=== PATIENT | female | born 1980 | race African-American/Black ===

== ENCOUNTER → 2016-07-17 | Outpatient (CLI) | payer OTHER ==
[2016-03-12 10:12] VITALS: BP 153/96
[~2016-07-17] MED LIST: CHOL100013 PO; GLIP5TAB10 PO; HYDR-971 PO; METH4TAB2 PO; NAPR500T8 PO; NIFE30TA7 PO; PREN-14 PO
--- NOTE | 2016-07-17 15:13 | RAD ---
EXAM: DIGITAL DIAGNOSTIC RT, BREAST RIGHT. HISTORY: Follow-up right breast mass. COMPARISON: Bilateral mammogram 12/14/2015. Right breast ultrasound 01/12/2016. FINDINGS: Digital mammography was performed. Computer-aided detection (CAD) was utilized. Routine CC and MLO views of the right breast were obtained. A marker was placed in the medial right breast in area of recently palpable lesion. Breast parenchyma is heterogeneously dense, which could reduce sensitivity of mammography (tissue density C). Several well-circumscribed masses are seen within the right breast which do not appear appreciably changed from previous study. One of the well-circumscribed masses which appears associated with the lesion marker measures about 2 cm in maximum dimension, and is thought unchanged from previous study. Further evaluation was performed with right breast ultrasound. Ultrasound imaging was performed by veterinary technologist. Within the right breast at 7:00, 7 cm from the nipple, there is a hypoechoic mass with enhanced through transmission. This mass measures 1.1 x 0.9 x 0.4 cm (previously 1.0 x 0.9 x 0.5 cm). Within the right breast at 3:00, 11 cm from the nipple, in the area of palpable abnormality, there is an additional hypoechoic mass which measures 2.0 x 1.0 x 1.3 cm. This appears to have a internal echogenic structure, which could be a septation. IMPRESSION: 1. 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 2. Hypoechoic mass detected by ultrasound involving the right breast at 7:00, 7 cm from the nipple, is unchanged over 6 month interval. Fibroadenoma is favored. 3. Palpable lesion in the medial right breast corresponds to a hypoechoic mass measuring 2.0 cm in maximum dimension. This mass appears mammographically unchanged, and probably represents additional fibroadenoma. 4. Recommend a follow-up bilateral diagnostic mammogram and right breast ultrasound in 6 months. BI-RADS CATEGORY: 3 PROBABLY BENIGN FINDING(S)-SHORT INTERVAL FOLLOW-UP SUGGESTED RECOMMENDED FOLLOW-UP: 6M 6 MONTH FOLLOW-UP PQRS compliance statement: Patient information was entered into a reminder system with a target due date for the next mammogram. Mammography is a sensitive method for finding small breast cancers, but it does not detect them all and is not a substitute for careful clinical examination. A negative mammogram does not negate a clinically suspicious finding and should not result in delay in biopsying a clinically suspicious abnormality. "Our facility is accredited by the [employer] Mammography Program."
== END | disposition home or self-care (01) ==
LOC: KCIC MAMMO 13:39
PROVIDERS: ATTEND Family Medicine
DX: N63 Unspecified lump in breast (principal)
CPT/HCPCS: 76641; G0206; 77051; 77065

== ENCOUNTER → 2017-02-08 | Outpatient (CLI) | payer OTHER ==
[2016-03-12 10:12] VITALS: BP 153/96
--- NOTE | 2017-02-08 11:32 | RAD ---
DATE: 02/08/2017 EXAM: MAMMO GUSTAVO ALEX BILAT, BREAST RIGHT HISTORY: Follow-up breast nodules COMPARISON: 07/17/2016 The breast parenchyma is heterogeneously dense, which could reduce the sensitivity of mammography. Breast parenchyma level C. FINDINGS: 2-D and 3-D tomosynthesis imaging was performed in CC and MLO projections. There are least 5 smooth nodules in the right breast. Comparison with the previous 2-D images shows no significant change in size. There is a breast biopsy marker related to the largest nodule in the inferior aspect of the right breast. Reportedly this was found to be a benign fibroadenoma at biopsy. There is a lesser degree of nodularity in the left breast. Several small smooth nodules are noted on the tomograms. The largest of these lies medially in the left breast and is unchanged since the previous 2-D exam. No new or enlarging breast densities are seen. There are benign type calcifications in both breasts. No suspicious microcalcifications have developed. Right breast ultrasound, 02/08/2017: A targeted ultrasound exam was performed in the areas of concern described on 07/17/2016 study. At the 3:00 location approximately 11 cm from the nipple there is a persistent 18 x 9 x 11 mm hypoechoic nodule. It appears to have decreased slightly in size since previous study, although that difference may be on a technical basis. It is wider than tall. It has a solid appearance. At the 7:00 location approximately 7 cm from the nipple there is an additional persistent hypoechoic nodule. It is best seen in the antiradial plane and measures 5 x 10 mm. It appears to be unchanged in size. Its margins are smooth and it is wider than tall. This is probably a fibroadenoma. IMPRESSION: Stable bilateral breast nodules as described above, most likely fibroadenomas. Mammographic surveillance beginning with 3-D mammography in 6 months and then at yearly intervals is suggested to confirm stability. BI-RADS CATEGORY: 3 PROBABLY BENIGN FINDING(S)-SHORT INTERVAL FOLLOW-UP SUGGESTED RECOMMENDED FOLLOW-UP: 6M 6 MONTH FOLLOW-UP PQRS compliance statement: Patient information was entered into a reminder system with a target due date for the next mammogram. Mammography is a sensitive method for finding small breast cancers, but it does not detect them all and is not a substitute for careful clinical examination. A negative mammogram does not negate a clinically suspicious finding and should not result in delay in biopsying a clinically suspicious abnormality. "Our facility is accredited by the [employer] Mammography [employer]."
== END | disposition home or self-care (01) ==
LOC: KCIC MAMMO 09:41
PROVIDERS: ATTEND Family Medicine
DX: N63 Unspecified lump in breast (principal); R92.1 Mammographic calcification found on diagnostic imaging of breast
CPT/HCPCS: 76641; G0204; G0279; 77062; 77066

== ENCOUNTER → 2018-03-04 | Outpatient (CLI) | payer OTHER ==
[2016-03-12 10:12] VITALS: BP 153/96
--- NOTE | 2018-03-04 16:32 | KCIC ---
Bilateral diagnostic digital mammograms with 3-D tomosynthesis: Reason for examination: Follow-up nodules. Comparison is made to previous studies dated back to 12/14/2015. Bilateral mammograms in CC and oblique projections were obtained with 2-D imaging and 3-D tomosynthesis imaging on a Siemens Inspiration unit and reviewed on the workstation. Interpretation was made with the benefit of CAD. The skin and nipples show no abnormalities. No abnormal axillary lymph nodes are seen. The breast parenchyma is heterogeneously dense. (Breast density: Category C.) There continue to be multiple small nodules present in the breasts. There appears however to be a new small circumscribed nodule at the 6:00 B position of the right breast and a small nodule at the 12:00 B position of the left breast. Further evaluation with ultrasound will follow. Benign calcifications are present. Impression: New nodules in the 6:00 B position of the right breast and 12:00 B position of the left breast. Ultrasound to follow. Your patient's mammogram demonstrates that she has dense breast tissue (breast density category C or D), which could hide abnormalities, and if she has other risk factors for breast cancer that have been identified, she might benefit from supplemental screening tests that may be suggested by you as her ordering physician. Dense breast tissue, in and of itself, is a relatively common condition. Therefore, this information is not provided to cause undue concern, but rather to raise your awareness and to promote discussion with your patient regarding the presence of other risk factors, in addition to dense breast tissue. Your patient's mammography results will be sent to her. BI-RAD Category 0: Incomplete. Needs additional imaging evaluation. Bilateral breast ultrasound: Comparison is made to previous ultrasound examination dated 02/08/2017. Bilateral whole breast ultrasound including evaluation of all 4 quadrants and the retroareolar and axillary regions of both breasts was performed. In the left breast at the 12:00 position 6 cm from the nipple, there is a septated cystic-appearing lesion measuring 8.4 x 6.9 mm in greatest dimensions. In the 1:00 position 5 cm from the nipple, there is a 1 cm hypoechoic circumscribed lesion in parallel orientation which may represent a complicated cyst or fibroadenoma. In the 3:00 position 9 cm from the nipple, there is a hypoechoic circumscribed lesion measuring 5.8 x 5 mm in size consistent with an intramammary lymph node. In the 8:00 position 10 cm from the nipple, there is a hypoechoic circumscribed lesion measuring 7.8 mm in greatest dimension which may represent a complicated cyst or small fibroadenoma. In the 10:00 position 7 cm from the nipple, there appears to be a small 3.5 mm cyst. No suspicious appearing lymph nodes are seen in the axilla. In the right breast at the 3:00 position 11 cm from the nipple, there continues to be a hypoechoic circumscribed lesion measuring 1.9 cm in greatest dimension which corresponds to a biopsy-proven fibroadenoma. In the 4:00 position 3.5 cm from the nipple, there is a 3.6 mm fibrocystic type lesion. In the 5:00 position 10 cm from the nipple, there is a 9.2 mm hypoechoic circumscribed lesion consistent with a complicated cyst. In the 7:00 position 7 cm from the nipple, there continues to be a small hypoechoic lesion measuring 1.1 cm in greatest dimension consistent with a probable fibroadenoma which is unchanged. In the 6:00 position 5 cm from the nipple, there is a small 5.2 mm fibrocystic lesion. In the 9:00 position 9 cm from the nipple, there is a 6.5 mm hypoechoic circumscribed lesion which may represent a small fibroadenoma. In the 10:00 position 8 cm from the nipple, there is a 3.5 cm hypoechoic fibrocystic type lesion. No suspicious nodules are seen. No abnormal appearing lymph nodes are seen in the axilla. IMPRESSION: Multiple small anechoic and hypoechoic lesions consistent with simple and complicated cysts, fibrocystic changes and fibroadenoma. No suspicious-appearing lesions are seen. Recommend 6 month sonographic follow-up. BI-RADS Category 3: Probably Benign. "Our facility is accredited by the [employer] Mammography Program." This patient's information has been entered into a reminder system for the patient to be notified with the results of her examination and a target date for the next mammogram. Electronically signed by: Leidy Bahena MD (03/04/2018 4:29 PM) [id number]
== END | disposition home or self-care (01) ==
LOC: KCIC MAMMO 09:29
PROVIDERS: ATTEND Family Medicine
DX: R92.8 Other abnormal and inconclusive findings on diagnostic imaging of breast (principal); I10 Essential (primary) hypertension; Z90.49 Acquired absence of other specified parts of digestive tract; Z88.0 Allergy status to penicillin; Z88.5 Allergy status to narcotic agent
CPT/HCPCS: 76641; 77066; G0279; 77062

== ENCOUNTER → 2018-04-03 | Outpatient (CLI) | payer OTHER ==
[2016-03-12 10:12] VITALS: BP 153/96
--- NOTE | 2018-04-03 11:59 | KCIC ---
Limited abdominal ultrasound History: Epigastric pain. Abdomen pain. Epigastric pain for 3 months. Cholecystectomy 2016. Findings: Aorta: No evidence of aneurysm. Inferior vena cava: Patent Pancreas: Not all segments are adequately visualized, particularly the pancreatic tail. Visualized aspects appear grossly unremarkable. Liver: Unremarkable and not enlarged Gallbladder: Surgically absent Bile ducts: No evidence of dilatation Right kidney: 11.5 cm length. No evidence of hydronephrosis. Impression: 1. No acute findings post cholecystectomy. 2. Limited visualization of the pancreas. Electronically signed by: Enzo Brown MD (04/03/2018 11:55 AM) [id number]
== END | disposition home or self-care (01) ==
LOC: KCIC US 09:10
PROVIDERS: ATTEND Internal Medicine Gastroenterology
DX: R10.13 Epigastric pain (principal); I10 Essential (primary) hypertension; Z90.49 Acquired absence of other specified parts of digestive tract; Z88.0 Allergy status to penicillin; Z88.5 Allergy status to narcotic agent
CPT/HCPCS: 76705

== ENCOUNTER → 2018-04-15 | Day surgery (SDC) | payer OTHER ==
[~2018-04-15] MED LIST changes: +IV RINGERS,LACTATED 1000ML 1,000 ML IV SCH; +LIDOCAINE 2% PF 2ML VIAL. ONE; +OMEP40CA5 PO; +PROPOFOL 0 ML IV ONE; +PROPOFOL 20 ML IV ONE
[2018-04-15 15:48] LABS: U PREG PATIENT NEGATIVE (NEG)
[2018-04-15 16:46] VITALS: BP 129/90
--- NOTE | 2018-04-15 22:29 | CONS ---
DATE OF CONSULTATION: 04/15/2018 REFERRING PROVIDER: Koffi Maria. HISTORY OF PRESENT ILLNESS: A 37-year-old female with past medical history significant for diabetes, anemia, status post cholecystectomy, hypertension, was seen with persistent nausea, epigastric pain, with nausea and vomiting on a daily basis, but no melena, hematochezia or hematemesis. She has had recurrent symptoms, which have been unrelieved with Prilosec, prior cholecystectomy. Interval ultrasounds were unrevealing for additional pathology. Continued issues, she requests additional evaluation. PAST MEDICAL HISTORY: Status post cholecystectomy, anemia, diabetes, hypertension. ALLERGIES: PENICILLIN AND CODEINE. MEDICATIONS: Include vitamin D, Nifedical, omeprazole 40 mg daily. FAMILY HISTORY: Significant for diabetes, hypertension, and pancreatic cancer. REVIEW OF SYSTEMS: Per records. PAST SURGICAL HISTORY: Breast surgery, , cholecystectomy and tubal ligation. PHYSICAL EXAMINATION: GENERAL: Reveals a well-nourished, well-developed female. VITAL SIGNS: Temperature 98.2, pulse 67, respirations 20. HEENT: Normocephalic and atraumatic head. Pupils and extraocular movements are not tested. Sclerae anicteric. NECK: Supple. LUNGS: Clear. CARDIOVASCULAR: Reveals an S1, S2 without S3, S4 or appreciable murmur. ABDOMEN: Soft abdomen, normal bowel sounds without appreciable hepatosplenomegaly with epigastric tenderness to deep palpation. EXTREMITIES: Reveals no cyanosis, clubbing or edema. IMPRESSION: Abdominal pain, status post cholecystectomy, etiology is to be determined. Differential includes peptic ulcer disease, gastroparesis, malignancy, celiac disease. I therefore recommend upper endoscopy. If this is unrevealing, a gastric emptying study would be pursued. ASA ERNST MD DR: ESA/charlette JOB#: [id number] / [id number]
== END | disposition home or self-care (01) ==
LOC: SURG 15:18
PROVIDERS: ATTEND Internal Medicine Gastroenterology
DX: K29.50 Unspecified chronic gastritis without bleeding (principal); I10 Essential (primary) hypertension; K21.9 Gastro-esophageal reflux disease without esophagitis; D64.9 Anemia, unspecified; Z88.0 Allergy status to penicillin; Z79.899 Other long term (current) drug therapy; Z90.49 Acquired absence of other specified parts of digestive tract; Z98.51 Tubal ligation status; Z98.890 Other specified postprocedural states
CPT/HCPCS: 43235; 81025; J2001; J2704

== ENCOUNTER → 2018-05-08 | Outpatient (CLI) | payer OTHER ==
[2018-04-15 16:46] VITALS: BP 129/90
[~2018-05-08] MED LIST changes: -IV RINGERS,LACTATED 1000ML 1,000 ML IV SCH; -LIDOCAINE 2% PF 2ML VIAL. ONE; -PROPOFOL 0 ML IV ONE; -PROPOFOL 20 ML IV ONE
--- NOTE | 2018-05-08 14:38 | RAD ---
Gastric Emptying Study 05/08/2018 Indication: nausea, vomiting since December 2017. Procedure: Anterior and posterior projection static images are obtained over the stomach following oral administration of 1.7 mCi of 99 M technetium sulfur colloid in a solid meal (egg and toast). Time points include an immediate baseline, and 1, 2, 3, and 4 hours post ingestion. Findings: There is progressive emptying of the stomach on sequential images. Percentage retention at... One hour is 54% (normal 34.8-91%). Two hours 24% (normal 2.7-60%). Three hours 8% (normal 0.5-28%). Four hours 0% (normal 0-10%). Impression: Normal 4 hour protocol gastric emptying study. Consensus Recommendations for Gastric Emptying Scintigraphy: A Joint Report of the [place] [employer] and the Society of Nuclear Medicine: J. Nucl. Med. Technol. September 2007 vol. 36 no. 1 44-54 Grading for severity of delayed GE based on the 4-h value: grade 1 (mild): 11?20% retention at 4 h grade 2 (moderate): 21?35% retention at 4 h grade 3 (severe): 36?50% retention at 4 h grade 4 (very severe): >50% retention at 4 h. Electronically signed by: Theodore Biswas MD (05/08/2018 2:34 PM) [id number]
== END | disposition home or self-care (01) ==
LOC: NM 10:22
PROVIDERS: ATTEND Internal Medicine Gastroenterology
DX: K30 Functional dyspepsia (principal)
CPT/HCPCS: 78264; A9541

== ENCOUNTER → 2018-06-10 | Outpatient (CLI) | payer OTHER ==
[2018-04-15 16:46] VITALS: BP 129/90
[~2018-06-10] MED LIST changes: +HYDR-3164 PO; -HYDR-971 PO
--- NOTE | 2018-06-10 16:03 | RAD ---
CT head without contrast 06/10/2018 Clinical indications: Persistent nausea. COMPARISON: None. TECHNIQUE: Multiple CT images of the head were obtained without contrast. *One or more of the following individualized dose reduction techniques were utilized for this examination: 1. Automated exposure control. 2. Adjustment of the mA and/or kV according to patient size. 3. Use of iterative reconstruction technique. FINDINGS: There are scattered nonspecific dural calcifications. No acute intracranial hemorrhage or extra-axial fluid collection. Note is made of hyperostosis frontalis internus. Small right sphenoid sinus mucosal retention cyst. No midline shift. Ventricles are normal in size and configuration for age. Stephens-white matter interfaces are maintained. The basal cisterns are patent. IMPRESSION: No acute intracranial hemorrhage. Electronically signed by: Vasquez Ritchie MD (06/10/2018 3:59 PM) [id number]
== END | disposition home or self-care (01) ==
LOC: CT 10:49
PROVIDERS: ATTEND Internal Medicine Gastroenterology
DX: J34.1 Cyst and mucocele of nose and nasal sinus (principal)
CPT/HCPCS: 70450

== ENCOUNTER → 2018-08-25 | Outpatient (CLI) | payer OTHER ==
[2018-04-15 16:46] VITALS: BP 129/90
--- NOTE | 2018-08-25 12:02 | KCIC ---
Bilateral breast ultrasound: Reason for examination: Follow-up nodules. Comparison is made to previous studies dated 03/04/2018 and 02/08/2017. Bilateral whole breast ultrasound including evaluation of all 4 quadrants and the retroareolar and axillary regions of both breasts was performed. There continue to be multiple hypoechoic septated circumscribed lesions measuring up to 1.7 cm in the right breast at 8.4 mm in the left breast consistent with fibroadenoma. There does appear to be new small hypoechoic fibrocystic type lesion in the 9:00 position 9 cm from the nipple measuring 3.3 mm in size. There are no cyst solid suspicious-appearing nodules seen. No abnormal appearing lymph nodes are seen in either breast. IMPRESSION: Multiple nodules present bilaterally consistent with fibroadenoma without significant change. No suspicious-appearing lesions are seen. Recommend routine mammographic follow-up. BI-RADS Category 2: Benign. "Our facility is accredited by the [employer] Mammography Program." This patient's information has been entered into a reminder system for the patient to be notified with the results of her examination and a target date for the next mammogram. Electronically signed by: Leidy Bahena MD (08/25/2018 11:59 AM) [id number]
== END | disposition home or self-care (01) ==
LOC: KCIC US 09:15
PROVIDERS: ATTEND Family Medicine
DX: N63.20 Unspecified lump in the left breast, unspecified quadrant (principal); N63.10 Unspecified lump in the right breast, unspecified quadrant
CPT/HCPCS: 76641

== ENCOUNTER → 2019-03-19 | Outpatient (CLI) | payer MEDICAID ==
[2018-04-15 16:46] VITALS: BP 129/90
--- NOTE | 2019-03-19 16:50 | KCIC ---
BILATERAL SCREENING MAMMOGRAM History: Routine screening. Comparison: 12/14/2015 screening mammographic exam, 02/08/2017 mammographic exam, a 22,018 mammographic exam. Technique: Routine bilateral digital mammogram views were obtained. Findings: Breast Tissue Density B : There are scattered areas of fibroglandular density. There are no dominant masses, suspicious microcalcifications, or architectural distortion. Multiple masses bilaterally are stable. No new mass. Biopsy clip marker is present involving the right lower inner breast. IMPRESSION: No mammographic evidence of malignancy. Recommend routine screening. BI-RADS category 1: Negative. The images were reviewed with computer aided detection. Patient information is entered into the reminder system with a target due date for the next screening mammogram. Mammography is the most sensitive method for finding small breast cancers, but it does not detect them all and is not a substitute for careful clinical examination. A negative mammogram does not negate a clinically suspicious finding and should not result in delay in biopsying a clinically suspicious abnormality. "Our facility is accredited by the [employer] Mammography Program." Electronically signed by: Ramos Jeronmio MD (03/19/2019 4:48 PM) [id number]
== END | disposition home or self-care (01) ==
LOC: KCIC MAMMO 09:27
PROVIDERS: ATTEND Family Medicine
DX: Z12.31 Encounter for screening mammogram for malignant neoplasm of breast (principal); N63.20 Unspecified lump in the left breast, unspecified quadrant; N63.10 Unspecified lump in the right breast, unspecified quadrant
CPT/HCPCS: 77067

== ENCOUNTER → 2020-04-16 | Outpatient (CLI) | payer MEDICAID ==
[2018-04-15 16:46] VITALS: BP 129/90
[~2020-04-16] MED LIST changes: +OMEP40CA45 PO; -OMEP40CA5 PO
--- NOTE | 2020-04-18 11:50 | RAD ---
DATE: 04/16/2020 8:30 AM EXAM: MAMMO GUSTAVO SCREENING BILATERAL HISTORY: Screening COMPARISON: 03/19/2019, 03/04/2018 Bilateral CC and MLO views of the breasts were performed. Bilateral breast tomosynthesis was performed in CC and MLO projections. This study was interpreted with the benefit of Computerized Aided Detection (CAD). FINDINGS: Breast Density: HETERO The breast parenchyma Is heterogeneously dense, which could reduce sensitivity of mammography. Breast parenchyma level C No suspicious masses, microcalcifications or architectural distortion is present to suggest malignancy in either breast. The visualized axillae are unremarkable. IMPRESSION: No mammographic evidence of malignancy. BI-RADS CATEGORY: 1 NEGATIVE RECOMMENDED FOLLOW-UP: 12M 12 MONTH FOLLOW-UP Annual screening mammography is recommended, unless clinically indicated sooner based on symptoms or change in physical exam. PQRS compliance statement: Patient information was entered into a reminder system with a target due date for the next mammogram. Mammography is a sensitive method for finding small breast cancers, but it does not detect them all and is not a substitute for careful clinical examination. A negative mammogram does not negate a clinically suspicious finding and should not result in delay in biopsying a clinically suspicious abnormality. "Our facility is accredited by the [employer] Mammography Program."
== END ==
LOC: MAMMO 08:25
PROVIDERS: ATTEND Family Medicine
DX: Z12.31 Encounter for screening mammogram for malignant neoplasm of breast (principal)
CPT/HCPCS: 77063; 77067